=== PATIENT | male | born 1980 | race Two or more races ===

== ENCOUNTER → 2017-08-08 | Outpatient (REF) | payer BC, OTHER ==
[2017-08-08 20:21] LABS: MEAN CORPUSCULAR HEMOGLOBIN 31.1 pg (27.0-33.0); MEAN CORPUSCULAR HGB CONC 33.8 g/dl (32.0-36.5); WHITE BLOOD COUNT 6.6 10^3/uL (4.0-10.0)
[2017-08-08 20:33] LABS: ALBUMIN 4.1 GM/DL (3.2-5.2); ALBUMIN/GLOBULIN RATIO 1.14 (1.00-1.93); ALKALINE PHOSPHATASE 61 U/L (45-117); ALT/SGPT 32 U/L (12-78); ANION GAP 7 MEQ/L (8-16); AST/SGOT 28 U/L (15-37); BILIRUBIN,TOTAL 0.5 MG/DL (0.2-1.0); BLOOD UREA NITROGEN 16 MG/DL (7-18); CALCIUM LEVEL 9.3 MG/DL (8.5-10.1); CARBON DIOXIDE LEVEL 30 MEQ/L (21-32); CHLORIDE LEVEL 104 MEQ/L (98-107); CHOLESTEROL LEVEL 179 MG/DL (<200); CREATININE FOR GFR 1.03 MG/DL (0.70-1.30); FREE T4 0.87 NG/DL (0.76-1.46); GLOMERULAR FILTRATION RATE > 60.0 (>60); GLUCOSE, FASTING 80 MG/DL (70-105); POTASSIUM SERUM 3.9 MEQ/L (3.5-5.1); SODIUM LEVEL 141 MEQ/L (136-145); TOTAL PROTEIN 7.7 GM/DL (6.4-8.2); TRIGLYCERIDES LEVEL 163 MG/DL (<150)
== END ==
LOC: M SFHCADAM 15:50
PROVIDERS: ATTEND Family Medicine
DX: R63.4 Abnormal weight loss (principal); G47.30 Sleep apnea, unspecified

== ENCOUNTER → 2018-03-11 | Outpatient (REF) | payer OTHER | LOC: M SFHCLERA 09:11 | DX: C44.629 Squamous cell carcinoma of skin of left upper limb, including shoulder (principal); D22.5 Melanocytic nevi of trunk ==

== ENCOUNTER → 2019-01-10 | Outpatient (REF) | payer OTHER ==
[2019-01-10 13:47] LABS: HEMATOCRIT 45.1 % (42.0-52.0); HEMOGLOBIN 15.4 g/dl (13.5-17.5); MEAN CORPUSCULAR HEMOGLOBIN 31.1 pg (27.0-33.0); MEAN CORPUSCULAR HGB CONC 34.1 g/dl (32.0-36.5); MEAN CORPUSCULAR VOLUME 91.1 fl (80.0-96.0); PLATELET COUNT, AUTOMATED 319 10^3/uL (150-450); RED BLOOD COUNT 4.95 10^6/uL (4.30-6.10); WHITE BLOOD COUNT 4.5 10^3/uL (4.0-10.0)
[2019-01-10 14:16] LABS: ALBUMIN 4.1 GM/DL (3.2-5.2); ALT/SGPT 31 U/L (12-78); BILIRUBIN,TOTAL 0.6 MG/DL (0.2-1.0); BLOOD UREA NITROGEN 15 MG/DL (7-18); CALCIUM LEVEL 8.7 MG/DL (8.5-10.1); CARBON DIOXIDE LEVEL 29 MEQ/L (21-32); CHLORIDE LEVEL 105 MEQ/L (98-107); CREATININE FOR GFR 1.01 MG/DL (0.70-1.30); FREE T4 0.96 NG/DL (0.76-1.46); GLOMERULAR FILTRATION RATE > 60.0 (>60); GLUCOSE, FASTING 95 MG/DL (70-100); MAGNESIUM LEVEL 2.1 MG/DL (1.8-2.4); POTASSIUM SERUM 4.3 MEQ/L (3.5-5.1); SODIUM LEVEL 140 MEQ/L (136-145); TOTAL PROTEIN 7.4 GM/DL (6.4-8.2)
== END ==
LOC: M SFHCADAM 08:57
PROVIDERS: ATTEND Physician Assistant
DX: R00.2 Palpitations (principal); I51.7 Cardiomegaly

== ENCOUNTER → 2019-01-21 | Outpatient (CLI) | payer BC, OTHER ==
--- NOTE | 2019-01-23 19:31 | HOLTMON ---
[facility] Test Date: 2019-01-21 Pat Name: CONNIE BURGESS Department: Room: - Gender: Male Cashier: WEROYUDITH ADKINS : 1980 Requested By: SCAR Estrada PA-C Order Number: [id number] Reading MD: Francisca Harper Interpretive Statements PATIENT WAS MONITORED FOR 23 HOURS AND 19 MINUTES. 20 HOURS AND 34 MINUTES WERE AMENABLE TO ANALYSIS. BASELINE MECHANISM WAS SR WITH NORMAL AV CONDUCTION AND NARROW QRS COMPLEX. MAXIMUM HR WAS 164 BPM, AVERAGE HR 88 BPM AND MINIMUM HR 46 BPM. THERE WERE NO PAUSES, NO EPISODES OF ATRIAL FIBRILLATION AND NO PAC'S OR PVC'S. PATIENT REPORTED SINGLE EPISODE OF DIZZINESS WHEN LIFTING WEIGHTS CORRESPONDING TO SINUS RHYTHM. NORMAL HOLTER MONITOR. Electronically Signed On 01-23-2019 19:31:17 EDT by Francisca Harper
== END ==
LOC: M CARPUL 09:39
PROVIDERS: ATTEND Physician Assistant
DX: R00.2 Palpitations (principal)

== ENCOUNTER → 2019-01-22 | Outpatient (CLI) | payer BC, OTHER ==
--- NOTE | 2019-01-23 06:26 | ECHO ---
DATE OF PROCEDURE: 01/22/2019 DATE OF : 1980 AGE: 38 REFERRING PROVIDER: Dr. Jayleen Red. PATIENT LOCATION: Outpatient. REASON FOR ECHOCARDIOGRAM: Palpitations. 2D MEASUREMENTS: IVS: 0.6 cm LV: 4.0 cm LVPW: 0.7 cm LA: 2.8 cm Aorta: 2.9 cm DOPPLER MEASUREMENTS: Peak velocity across the aortic valve: 0.99 m/s Peak velocity across the LVOT: 0.92 m/s Mitral E: 0.6 Mitral A: 0.5 Ratio 1.3 2D COMMENTS: 1. Normal left ventricular size, wall thickness and normal global left ventricular systolic function. The estimated left ventricular systolic ejection fraction is 60% to 65%. 2. Normal left atrium. Normal right atrium and right ventricle. 3. The atrial septum appeared to be normal without evidence of defect or shunt. 4. Normal aortic root. 5. No pericardial effusion seen. 6. The aortic valve, mitral valve, tricuspid valve, and pulmonic valve appeared to be normal. The proximal pulmonary artery branches were not well visualized. 7. The inferior vena cava subjectively appeared to be normal in size. DOPPLER: It detects trace mitral regurgitation and trace tricuspid regurgitation. Pulmonary artery systolic pressure is most likely normal. IMPRESSION: 1. Normal global left ventricular systolic and diastolic function. 2. Trace mitral regurgitation. 3. Trace tricuspid regurgitation.
== END ==
LOC: M EKG 09:37
PROVIDERS: ATTEND Physician Assistant
DX: R00.2 Palpitations (principal)

== ENCOUNTER → 2019-03-14 | Outpatient (CLI) | payer BC, OTHER ==
--- NOTE | 2019-03-18 23:16 | SLEEPHOME ---
DATE OF PROCEDURE: 03/14/2019 ORDERED BY: Jayleen Red Diagnostic home sleep testing was performed due to concern for the obstructive sleep apnea syndrome in this patient with a history of heart palpitations. For testing a nocturnal T3 respiratory monitoring device was used. Continuous record was made of pulse, oxygen saturation, airflow, chest, abdominal strain and body position. 9 hours and 59 minutes of data were reviewed. There were 9 hours and 20 minutes marked as time in bed. During the interval marked time in bed, there were only 17 respiratory events identified of 10 seconds in duration or greater for a respiratory event index within normal limits at 1.8. The events identified were primarily hypopneic and associated with supine posture. Baseline pulse rate 74 beats per minute, pulse rate ranged 56-112. Baseline saturation 94%, saturation fell briefly to 89%. Testing was performed in both the supine and nonsupine positions. IMPRESSION: Essentially normal diagnostic home sleep test with no evidence to support the obstructive sleep apnea syndrome.
== END ==
LOC: M SLEEP HO 10:47
PROVIDERS: ATTEND Physician Assistant
DX: R00.2 Palpitations (principal)

== ENCOUNTER → 2019-06-09 | Outpatient (REF) | payer OTHER | LOC: M SFHCPLAZ 18:15 | PROVIDERS: ATTEND Dermatology | DX: D22.62 Melanocytic nevi of left upper limb, including shoulder (principal) ==

== ENCOUNTER → 2021-10-12 | Outpatient (REF) | payer OTHER ==
[2021-10-12 13:22] LABS: HEMATOCRIT 46.6 % (42.0-52.0); HEMOGLOBIN 15.6 g/dl (13.5-17.5); MEAN CORPUSCULAR HGB CONC 33.5 g/dl (32.0-36.5); MEAN CORPUSCULAR VOLUME 92.6 fl (80.0-96.0); PLATELET COUNT, AUTOMATED 283 10^3/uL (150-450); RED BLOOD COUNT 5.03 10^6/uL (4.30-6.10); WHITE BLOOD COUNT 5.3 10^3/uL (4.0-10.0)
[2021-10-12 13:51] LABS: ALBUMIN 3.9 GM/DL (3.2-5.2); ALT/SGPT 35 U/L (12-78); BILIRUBIN,TOTAL 1.1 MG/DL (0.2-1.0); BLOOD UREA NITROGEN 19 MG/DL (7-18); CALCIUM LEVEL 9.4 MG/DL (8.5-10.1); CARBON DIOXIDE LEVEL 31 MEQ/L (21-32); CHLORIDE LEVEL 103 MEQ/L (98-107); CHOLESTEROL LEVEL 186 MG/DL (<200); CREATININE FOR GFR 1.02 MG/DL (0.70-1.30); FREE T4 0.84 NG/DL (0.76-1.46); GLOMERULAR FILTRATION RATE > 60.0 (>60); GLUCOSE, FASTING 90 MG/DL (70-100); HDL CHOLESTEROL 34 MG/DL (>40); LDL CHOLESTEROL 108 MG/DL (<100); NON-HDL-C 152 MG/DL; POTASSIUM SERUM 4.7 MEQ/L (3.5-5.1); SODIUM LEVEL 139 MEQ/L (136-145); TOTAL PROTEIN 7.5 GM/DL (6.4-8.2); TRIGLYCERIDES LEVEL 218 MG/DL (<150)
== END ==
LOC: M SFHCADAM 09:21
PROVIDERS: ATTEND Family Medicine
DX: K30 Functional dyspepsia (principal); R07.9 Chest pain, unspecified; E78.5 Hyperlipidemia, unspecified

== ENCOUNTER → 2022-10-17 | Outpatient (REF) | payer OTHER ==
[2022-10-17 14:10] LABS: HEMATOCRIT 46.7 % (42.0-52.0); HEMOGLOBIN 15.3 g/dl (13.5-17.5); MEAN CORPUSCULAR HGB CONC 32.8 g/dl (32.0-36.5); MEAN CORPUSCULAR VOLUME 94.5 fl (80.0-96.0); PLATELET COUNT, AUTOMATED 268 10^3/uL (150-450); RED BLOOD COUNT 4.94 10^6/uL (4.30-6.10); WHITE BLOOD COUNT 4.6 10^3/uL (4.0-10.0)
[2022-10-17 14:27] LABS: HEMOGLOBIN A1c 5.2 % (4.0-6.0)
[2022-10-17 14:36] LABS: THYROID STIMULATING HORMONE 1.578 uIU/ML (0.55-4.78)
[2022-10-17 14:37] LABS: ALBUMIN 3.9 G/DL (3.2-5.2); ALKALINE PHOSPHATASE 62 U/L (46-116); ALT/SGPT 33 U/L (7.0-40); AST/SGOT 38 U/L (<34); BILIRUBIN,TOTAL 0.9 MG/DL (0.3-1.2); BLOOD UREA NITROGEN 20 MG/DL (9-23); CALCIUM LEVEL 8.8 MG/DL (8.5-10.1); CARBON DIOXIDE LEVEL 28 MMOL/L (20-31); CHLORIDE LEVEL 104 MMOL/L (98-107); CHOLESTEROL LEVEL 192 MG/DL (<200); CREATININE FOR GFR 1.04 MG/DL (0.70-1.30); FREE T4 0.96 NG/DL (0.89-1.76); GLOMERULAR FILTRATION RATE > 60.0 (>60); GLUCOSE, FASTING 66 MG/DL (60-100); HDL CHOLESTEROL 36.2 MG/DL (>40); NON-HDL-C 156 MG/DL; POTASSIUM SERUM 4.8 MMOL/L (3.5-5.1); SODIUM LEVEL 140 MMOL/L (136-145); TRIGLYCERIDES LEVEL 124 MG/DL (<150)
[2022-10-18 17:07] LABS: TESTOSTERONE FREE (DIRECT) 17.3 pg/mL (6.8-21.5)
== END ==
LOC: M SFHCADAM 09:11
PROVIDERS: ATTEND Family Medicine
DX: K30 Functional dyspepsia (principal); E78.5 Hyperlipidemia, unspecified; F41.0 Panic disorder [episodic paroxysmal anxiety]; R53.83 Other fatigue

== ENCOUNTER → 2022-10-17 | Outpatient (CLI) | payer BC, OTHER | LOC: M ADAMS 09:21 | PROVIDERS: ATTEND Family Medicine | DX: M25.561 Pain in right knee (principal); M25.761 Osteophyte, right knee ==

== ENCOUNTER → 2022-11-20 | Outpatient (CLI) | payer BC, OTHER ==
[2022-11-20 13:11] LABS: FREE T4 1.03 NG/DL (0.89-1.76); THYROID STIMULATING HORMONE 2.048 uIU/ML (0.55-4.78)
== END ==
LOC: M LAB 11:54
PROVIDERS: ATTEND Physician Assistant
DX: F41.1 Generalized anxiety disorder (principal); F41.0 Panic disorder [episodic paroxysmal anxiety]

== ENCOUNTER → 2023-12-04 | Outpatient (REF) | payer OTHER ==
[2023-12-04 16:24] LABS: HEMATOCRIT 47.9 % (42.0-52.0); HEMOGLOBIN 15.9 g/dl (13.5-17.5); MEAN CORPUSCULAR HEMOGLOBIN 31.1 pg (27.0-33.0); MEAN CORPUSCULAR HGB CONC 33.2 g/dl (32.0-36.5); MEAN CORPUSCULAR VOLUME 93.7 fl (80.0-96.0); PLATELET COUNT, AUTOMATED 299 10^3/uL (150-450); RED BLOOD COUNT 5.11 10^6/uL (4.30-6.10); WHITE BLOOD COUNT 7.1 10^3/uL (4.0-10.0)
[2023-12-04 16:27] LABS: FREE T4 1.15 NG/DL (0.89-1.76); THYROID STIMULATING HORMONE 2.134 uIU/ML (0.55-4.78)
[2023-12-04 17:18] LABS: ALBUMIN 3.8 G/DL (3.2-5.2); ALKALINE PHOSPHATASE 58 U/L (46-116); ALT/SGPT 34 U/L (7.0-40); AST/SGOT 30 U/L (<34); BILIRUBIN,TOTAL 0.8 MG/DL (0.3-1.2); BLOOD UREA NITROGEN 19 MG/DL (9-23); CALCIUM LEVEL 9.1 MG/DL (8.5-10.1); CARBON DIOXIDE LEVEL 32 MMOL/L (20-31); CHLORIDE LEVEL 106 MMOL/L (98-107); CREATININE FOR GFR 1.08 MG/DL (0.70-1.30); GLOMERULAR FILTRATION RATE > 60.0 (>60); GLUCOSE, FASTING 93 MG/DL (60-100); POTASSIUM SERUM 4.6 MMOL/L (3.5-5.1); SODIUM LEVEL 140 MMOL/L (136-145); TOTAL PROTEIN 7.4 G/DL (5.7-8.2)
[2023-12-04 20:19] LABS: HEMOGLOBIN A1c 5.3 % (4.0-6.0)
[2023-12-06 20:10] LABS: TESTOSTERONE FREE (DIRECT) > 50.0 pg/mL (6.8-21.5)
== END ==
LOC: M SFHCADAM 14:43
PROVIDERS: ATTEND Family Medicine
DX: Z13.1 Encounter for screening for diabetes mellitus (principal); F41.0 Panic disorder [episodic paroxysmal anxiety]; E34.9 Endocrine disorder, unspecified; I10 Essential (primary) hypertension

== ENCOUNTER → 2025-01-20 | Outpatient (REF) | payer OTHER ==
[2025-01-20 15:16] LABS: HEMATOCRIT 48.9 % (42.0-52.0); HEMOGLOBIN 16.1 g/dl (13.5-17.5); MEAN CORPUSCULAR HEMOGLOBIN 30.5 pg (27.0-33.0); MEAN CORPUSCULAR HGB CONC 32.9 g/dl (32.0-36.5); MEAN CORPUSCULAR VOLUME 92.6 fl (80.0-96.0); PLATELET COUNT, AUTOMATED 303 10^3/uL (150-450); RED BLOOD COUNT 5.28 10^6/uL (4.30-6.10)
[2025-01-20 15:45] LABS: ALKALINE PHOSPHATASE 59 U/L (40-129); ALT/SGPT 60 U/L (7.0-40); AST/SGOT 45 U/L (<34); BILIRUBIN,TOTAL 0.9 MG/DL (0.3-1.2); BLOOD UREA NITROGEN 18 MG/DL (9-23); CALCIUM LEVEL 9.7 MG/DL (8.5-10.1); CARBON DIOXIDE LEVEL 31 MMOL/L (20-31); CHLORIDE LEVEL 99 MMOL/L (98-107); CHOLESTEROL LEVEL 225 MG/DL (<200); CHOLESTEROL RISK RATIO 6.88 (<5); CREATININE FOR GFR 1.06 MG/DL (0.70-1.30); GLOMERULAR FILTRATION RATE > 60.0 (>60); GLUCOSE, FASTING 87 MG/DL (60-100); HDL CHOLESTEROL 32.7 MG/DL (>40); LDL CHOLESTEROL 151.5 MG/DL (<100); NON-HDL-C 192.3 MG/DL; POTASSIUM SERUM 4.6 MMOL/L (3.5-5.1); SODIUM LEVEL 139 MMOL/L (136-145); TOTAL PROTEIN 7.4 G/DL (5.7-8.2); TRIGLYCERIDES LEVEL 204 MG/DL (<150)
[2025-01-20 15:48] LABS: THYROID STIMULATING HORMONE 2.035 uIU/ML (0.55-4.78)
[2025-01-20 15:49] LABS: FREE T4 0.95 NG/DL (0.89-1.76)
== END ==
LOC: M SFHCADAM 09:31
PROVIDERS: ATTEND Family Medicine
DX: F41.0 Panic disorder [episodic paroxysmal anxiety] (principal); Z13.1 Encounter for screening for diabetes mellitus; I10 Essential (primary) hypertension; I51.7 Cardiomegaly; E34.9 Endocrine disorder, unspecified; Z12.5 Encounter for screening for malignant neoplasm of prostate
CPT/HCPCS: 80053; 80061; 83036; 84439; 84443; 85027; G0103